=== PATIENT | male | born 1975 | race Caucasian/White ===

== ENCOUNTER 2016-12-03 06:54 | Emergency (ER) | payer OTHER ==
[2016-12-03 08:37] VITALS: BP 135/72
== END 2016-12-03 08:37 | disposition home or self-care (01) ==
LOC: ED 06:54
DX: M54.5 Low back pain (principal)
CPT/HCPCS: J2270; J3360

== ENCOUNTER 2018-08-29 08:06 | Emergency (ER) | payer SELFPAY ==
[~2018-08-29] VITALS: Ht 177.8 cm; Wt 117.9 kg
[2018-08-29 08:21] VITALS: BP 135/85; Ht 177.8 cm; Wt 117.9 kg
== END 2018-08-29 08:53 | disposition home or self-care (01) ==
LOC: ED 08:06
DX: M62.830 Muscle spasm of back (principal); Z88.6 Allergy status to analgesic agent

== ENCOUNTER 2020-02-19 07:27 | Emergency (ER) | payer OTHER ==
[~2020-02-19] VITALS: Ht 177.8 cm; Wt 113.4 kg
[2020-02-19 07:36] VITALS: Ht 177.8 cm; Wt 113.4 kg
[2020-02-19 09:21] VITALS: BP 112/81
== END 2020-02-19 09:21 | disposition home or self-care (01) ==
LOC: ED 07:27
DX: S60.562A Insect bite (nonvenomous) of left hand, initial encounter (principal); L03.114 Cellulitis of left upper limb; W57.XXXA Bitten or stung by nonvenomous insect and other nonvenomous arthropods, initial encounter; Y93.89 Activity, other specified; Y92.89 Other specified places as the place of occurrence of the external cause; Y99.8 Other external cause status
CPT/HCPCS: 90715

== ENCOUNTER 2020-02-23 04:08 | Emergency (ER) | payer OTHER ==
[~2020-02-23] VITALS: Ht 177.8 cm; Wt 114.3 kg
[2020-02-23 04:18] VITALS: Ht 177.8 cm; Wt 114.3 kg
[2020-02-23 05:13] LABS: microscopic required? NO
[2020-02-23 05:36] LABS: UA SPECIFIC GRAVITY >=1.030 (1.005-1.035); urine erythrocyte NEGATIVE (NEGATIVE)
[2020-02-23 05:38] LABS: BASOPHIL % 0.6 % (0-2); PLATELET COUNT 240 x10^3mcL (130-400); RED CELL DISTRIBUTION WIDTH 13.2 % (11.5-14.5)
[2020-02-23 05:42] LABS: CALCIUM 8.3 mg/dL (8.5-10.1); CARBON DIOXIDE 28.9 mmol/L (21-32); CREATININE SERUM 1.4 mg/dL (0.7-1.3); POTASSIUM SERUM 3.9 mmol/L (3.5-5.1)
[2020-02-23 05:50] LABS: ALBUMIN 3.7 g/dL (3.4-5.0); BILIRUBIN TOTAL 0.61 mg/dL (0.20-1.00); C REACTIVE PROTEIN 0.4 mg/dL (<=0.9); TOTAL PROTEIN, SERUM 6.9 g/dL (6.4-8.2)
[2020-02-23 07:03] VITALS: BP 107/78
[2020-02-23 07:16] LABS: ERYTHROCYTE SED RATE 5 mm/hr (0-15)
== END 2020-02-23 07:03 | disposition home or self-care (01) ==
LOC: ED 04:08
PROVIDERS: Emergency Medicine
DX: I77.6 Arteritis, unspecified (principal); Z88.0 Allergy status to penicillin; Z88.6 Allergy status to analgesic agent